=== PATIENT | female | born 1940 | race Caucasian/White ===

== ENCOUNTER 2024-06-16 11:07 | Emergency (ER) | payer MEDICARE, OTHER, SELFPAY ==
[2024-06-16] VITALS (7 sets, daily range): BP systolic 127–148; BP diastolic 65–80; PULSE 60–70; RESP 16; TEMP 37.1; O2SAT 90–98; BMI 17.2
--- NOTE | 2024-06-16 11:45 | DI.RAD.S_ITS ---
PROCEDURE: XR TIBIA FIBULA LT 2V INDICATIONS: Please evaluate for injury TECHNIQUE: 2 views of the tibia and fibula were acquired. COMPARISON: [facility], CR, XR KNEE LT 3V, 06/16/2024, 11:47. FINDINGS: Bones: There is a minimally displaced lateral tibial plateau fracture. There is intra-articular involvement. No more distal fracture is seen. Generalized degenerative changes and osteopenia can be seen. Soft tissues: No suspicious soft tissue calcifications or masses. IMPRESSION: Minimally displaced lateral tibial plateau fracture, with intra-articular involvement of the fracture line. Dictated by: Spencer Dixon M.D. on 06/16/2024 at 11:34 Approved by: Spencer Dixon M.D. on 06/16/2024 at 11:35
--- NOTE | 2024-06-16 11:45 | DI.RAD.S_ITS ---
PROCEDURE: XR KNEE LT 3V INDICATIONS: Please evaluate for injury TECHNIQUE: 3 views of the knee were acquired. COMPARISON: [facility], CR, XR TIBIA FIBULA LT 2V, 06/16/2024, 11:47. FINDINGS: Bones: There is a faintly seen, minimally displaced fracture of the lateral tibial plateau, with intra-articular involvement. Generalized degenerative changes are seen. Soft tissues: There is a moderate joint effusion, seen, with a fat fluid level. No suspicious soft tissue calcifications. Atherosclerotic calcification is noted. IMPRESSION: Minimally displaced lateral tibial plateau fracture, with intra-articular involvement. There is a moderate joint effusion, with lipohemarthrosis. Dictated by: Spencer Dixon M.D. on 06/16/2024 at 11:33 Approved by: Spencer Dixon M.D. on 06/16/2024 at 11:34
--- NOTE | 2024-06-16 12:05 | ED_ITS ---
HPI - Fall General Chief Complaint: Fall Stated Complaint: trip and fall left calf pain Time Seen by Provider: 06/16/24 11:19 Source: patient and EMS Mode of arrival: EMS History of Present Illness HPI Narrative: 84-year-old female resident of [facility] presents with left lower leg injury with a mechanical fall witnessed by staff having left knee area pain at this time but able to walk and bend her knee at all times. Other than what is stated 14 pt ROS is negative. Review of Systems Review of Systems ROS Unobtainable: All systems reviewed & are unremarkable except as noted in HPI and below Patient History Social History Smoking Status: Never smoker Smoking Status: Never smoker Exam Narrative Exam Narrative: GENERAL: [84] year old patient appears stated age. Well-developed patient, in mild distress. HEAD: Atraumatic. Normocephalic. EYES: Pupils equal round and reactive. Extraocular motions intact. No scleral icterus. No injection or drainage. ENT: Nose without bleeding, purulent drainage. Throat without erythema, tonsillar hypertrophy or exudate. Airway patent. NECK: Trachea midline. Non tender CARDIOVASCULAR: Regular rate and rhythm without murmurs, gallops, or rubs. RESPIRATORY: Clear to auscultation. Breath sounds equal bilaterally. No wheezes, rales, or rhonchi. GASTROINTESTINAL: Abdomen soft, non-tender, nondistended. EXTREMITIES: No edema. L Lateral joint line TTP on L knee but able to flex knee in flexion/extension with pain. Neg varus/valgus/adam/fabi, motor/sensory intact +2DP +2PT cap refill <2secs BACK: Nontender without deformity or crepitance. No flank tenderness. NEURO: AOx3. SKIN: No rash or erythema of visible areas Initial Vital Signs Initial Vital Signs: Vital Signs Temperature 98.7 F 06/16/24 11:36 Pulse Rate 65 06/16/24 11:36 Respiratory Rate 16 06/16/24 11:36 Blood Pressure 138/80 06/16/24 11:36 Pulse Oximetry 98 06/16/24 11:36 Oxygen Delivery Method Room Air 06/16/24 11:36 Course Orders Ordered: ED Orders 06/16/24 11:45 XR knee LT 3V Stat XR tibia fibula LT 2V Stat 06/16/24 13:29 CT LE LT wo con Stat Discontinued Medications Acetaminophen (Acetaminophen 325 Mg Tablet) 650 mg PO NOW ONE Stop: 06/16/24 12:04 Last Admin: 06/16/24 12:08 Dose: 650 mg Documented By: ZACHERY Vital Signs Vital signs: Vital Signs - 8 hr 06/16/24 11:36 Temperature 98.7 F Pulse Rate 65 Respiratory Rate 16 Blood Pressure 138/80 Pulse Oximetry 98 Oxygen Delivery Method Room Air MDM - Fall Imaging Data Extremity x-ray #1: Radiologist's Impression: PROCEDURE: XR TIBIA FIBULA LT 2V INDICATIONS: Please evaluate for injury TECHNIQUE: 2 views of the tibia and fibula were acquired. COMPARISON: [facility], , XR KNEE LT 3V, 06/16/2024, 11:47. FINDINGS: Bones: There is a minimally displaced lateral tibial plateau fracture. There is intra-articular involvement. No more distal fracture is seen. Generalized degenerative changes and osteopenia can be seen. Soft tissues: No suspicious soft tissue calcifications or masses. IMPRESSION: Minimally displaced lateral tibial plateau fracture, with intra- articular involvement of the fracture line. Dictated by: Spencer Dixon M.D. on 06/16/2024 at 11:34 Approved by: Spencer Dixon M.D. on 06/16/2024 at 11:35 [place] [address] XRay Report Signed Patient: Juana Jones MR#: [id number] : 1940 Acct:[id number] Age/Sex: 84 / F Date of Service: 06/16/24 Loc: ED Accession Number: [id number] Procedure: XR knee LT 3V Ordering Provider: Dilan Gibbs D.O. PROCEDURE: XR KNEE LT 3V INDICATIONS: Please evaluate for injury TECHNIQUE: 3 views of the knee were acquired. COMPARISON: [facility], , XR TIBIA FIBULA LT 2V, 06/16/2024, 11:47. FINDINGS: Bones: There is a faintly seen, minimally displaced fracture of the lateral tibial plateau, with intra-articular involvement. Generalized degenerative changes are seen. Soft tissues: There is a moderate joint effusion, seen, with a fat fluid level. No suspicious soft tissue calcifications. Atherosclerotic calcification is noted. IMPRESSION: Minimally displaced lateral tibial plateau fracture, with intra-articular involvement. There is a moderate joint effusion, with lipohemarthrosis. Dictated by: Spencer Dixon M.D. on 06/16/2024 at 11:33 Approved by: Spencer Dixon M.D. on 06/16/2024 at 11:[address] [address] [address] Scan Report Signed Patient: Juana Jones MR#: [id number] : 1940 Acct:[id number] Age/Sex: 84 / F Date of Service: 06/16/24 Loc: ED Accession Number: [id number] Procedure: CT LE LT wo con Ordering Provider: Dilan Gibbs D.O. PROCEDURE: CT LE LT W CON INDICATIONS: Fracture seen on plain film. Ct scan L knee per TECHNIQUE: Noncontrast 1-1.5 mm axial sections acquired from the mid-patella to the proximal tibia, with coronal and sagittal reformats. COMPARISON: [facility], CR, XR KNEE LT 3V, 06/16/2024, 11:47. [facility], CR, XR TIBIA FIBULA LT 2V, 06/16/2024, 11:47. FINDINGS: Image quality: Excellent. Bones: There is a mildly comminuted, minimally displaced fracture seen involving the lateral tibial plateau, with intra-articular involvement. Mild depression can be seen along the fracture line, which is best appreciated on sagittal images, as on series 4, image 42. The maximum step-off along the articular surface is 2 mm. Generalized degenerative changes are seen elsewhere. Soft tissues: There is associated lipohemarthrosis. Atherosclerotic calcification is noted. IMPRESSION: Comminuted fracture of the lateral tibial plateau, with associated lipohemarthrosis. Dictated by: Spencer Dixon M.D. on 06/16/2024 at 13:23 Approved by: Spencer Dixon M.D. on 06/16/2024 at 13:25 MDM Narrative Medical decision making narrative: X-ray and ct scan reviewed vital signs nurse triage note medication list previous ER visits and previous imaging modalities all reviewed. Case discussed with Dr. Echevarria orthopedics surgeon on-call to place a lower extremity CT scan order patient was also placed in a knee immobilizer and to follow up outpatient with Dr. Echevarria. Differential diagnosis includes fracture dislocation contusion sprain. Discharge Plan Departure Patient Disposition: Home Clinical Impression: Closed fracture of tibial plateau Qualifiers: Encounter type: initial encounter Laterality: left Qualified Code(s): S82.142A - Displaced bicondylar fracture of left tibia, initial encounter for closed fracture Activity Restrictions/Additional Instructions: Return with new or worsening symptoms. Follow up with Dr. Echevarria orthopedic surgeon call office for appointment. Referrals: Zenobia Echevarria MD [Physician] - 3-5 days Stand Alone Forms: Patient Portal/API/Survey
[2024-06-16] MEDS: ACETAMINOPHEN 325 MG TABLET 650 MG PO (12:08)
--- NOTE | 2024-06-16 13:29 | DI.CT.S_ITS ---
PROCEDURE: CT LE LT W CON INDICATIONS: Fracture seen on plain film. Ct scan L knee per TECHNIQUE: Noncontrast 1-1.5 mm axial sections acquired from the mid-patella to the proximal tibia, with coronal and sagittal reformats. COMPARISON: [facility], CR, XR KNEE LT 3V, 06/16/2024, 11:47. [facility], CR, XR TIBIA FIBULA LT 2V, 06/16/2024, 11:47. FINDINGS: Image quality: Excellent. Bones: There is a mildly comminuted, minimally displaced fracture seen involving the lateral tibial plateau, with intra-articular involvement. Mild depression can be seen along the fracture line, which is best appreciated on sagittal images, as on series 4, image 42. The maximum step-off along the articular surface is 2 mm. Generalized degenerative changes are seen elsewhere. Soft tissues: There is associated lipohemarthrosis. Atherosclerotic calcification is noted. IMPRESSION: Comminuted fracture of the lateral tibial plateau, with associated lipohemarthrosis. Dictated by: Spencer Dixon M.D. on 06/16/2024 at 13:23 Approved by: Spencer Dixon M.D. on 06/16/2024 at 13:25
--- NOTE | 2024-06-16 13:52 | PC.NURSE ---
Assisted pt with bedpan. Was unable to urinate.
--- NOTE | 2024-06-16 14:47 | PM.HP.1 ---
History of Present Illness History of Present Illness Date Patient Seen: 06/16/24 Time Patient Seen: 14:47 Date of Onset of Symptoms: 06/16/24 Chief complaint: trip and fall left calf pain Narrative: This is a 84-year-old who lives at [facility] who tripped and injured her left knee today. She has mild dementia. 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 She notes some mild left knee pain. She denies loss of consciousness. She was not lightheaded did not have any chest pain prior to the fall. [facility] Social History Smoking Status: Never smoker Review of Systems Review of Systems Narrative: She notes she has otherwise been reasonably well. She says she is trying to get stronger at [facility]. Exam Vital Signs (past 8 hours): - 06/16/24 11:15 06/16/24 11:15 06/16/24 11:30 Temperature Pulse Rate 66 Respiratory Rate Blood Pressure 129/77 138/80 Pulse Oximetry 90 L Oxygen Delivery Method 06/16/24 11:30 06/16/24 11:36 06/16/24 12:00 Temperature 98.7 F Pulse Rate 60 65 Respiratory Rate 16 Blood Pressure 138/80 148/80 H Pulse Oximetry 91 98 Oxygen Delivery Method Room Air 06/16/24 12:00 06/16/24 12:30 06/16/24 12:30 Temperature Pulse Rate 63 61 Respiratory Rate Blood Pressure 127/77 Pulse Oximetry 87 L 91 Oxygen Delivery Method Oxygen Delivery Method Room Air Narrative Exam Narrative: She was resting comfortably in bed HEENT is benign, lungs are clear, cor regular rate and rhythm, examination of the left lower extremity shows [id number] swelling in the left knee, focal tenderness along the lateral joint line, no gross deformity, compartments are soft, skin is intact, she is able to fire her toe flexors and extensors Objective Labs Labs: X-rays show a left lateral tibial plateau fracture, CT scan confirms essentially nondisplaced comminuted left lateral tibial plateau fracture Assessment & Plan Assessment and plan (1) Closed fracture of tibial plateau: Qualifiers: Encounter type: initial encounter Laterality: left Qualified Code(s): S82.142A - Displaced bicondylar fracture of left tibia, initial encounter for closed fracture Status: Acute Plan I have recommended conservative treatment. I have recommended a left knee immobilizer. She was in a very short left knee immobilizer I asked him to place her in a full-length knee immobilizer. I think she needs to be strict nonweightbearing on the left lower extremity. I would like her to follow up in 1 week with repeat left knee x-rays. It is okay to take the x-rays out of the brace. She needs to use her walker and/or a wheelchair to mobilize. Time-Based Coding :: [TOTAL MINUTES] spent with patient and on the chart (including review of chart, obtaining history, exam, reviewing outside data, placing orders, documenting exam and treatment plan, and counseling patient) on [DATE].
[2024-06-16] MEDS: HYDROCODONE/ACET 5/325 TABLET 1 TAB PO (15:42)
== END 2024-06-16 16:58 | disposition home or self-care (01) ==
PROVIDERS: Emergency Provider Family Medicine
DX: S82.142A Displaced bicondylar fracture of left tibia, initial encounter for closed fracture (principal); W01.0XXA Fall on same level from slipping, tripping and stumbling without subsequent striking against object, initial encounter
CPT/HCPCS: 73562; 73590; 73700; 99283; 99284

== ENCOUNTER 2024-06-29 17:56 | Inpatient (IN) | payer MEDICARE, OTHER, MEDICAID, SELFPAY ==
[2024-06-29] VITALS (14 sets, daily range): BP systolic 137–162; BP diastolic 74–96; PULSE 77–97; RESP 12–21; TEMP 36.4–36.6; O2SAT 87–99; BMI 16.0
--- NOTE | 2024-06-29 | DI.ECHO.S_ITS ---
[facility] : : [address] : : [place] : : [address] : : Phone: [phone] Echocardiogram Report + + :Name: JOSE DELEON Study Date: 06/30/2024 Height: 67 in : :[facility] ReadingLocation: Weight: 105 lb : : Gender: Female BSA: 1.5 m2 : :: 1940 Age: 84 yrs BP: 120/80 mmHg: :Reason For Study: PE : :Ordering Physician: KELLEE, : :NIGHAT DELGADO Performed By: Caio Dao : :Referring: UNSPECIFIED : + + Interpretation Summary TDS -SMALL BODY HABITUS, LARGE BREAST IMPLANTS. PT COMPLAINS OF PAIN AND COLD DURING EXAM, REFUSED SECOND HALF OF EXAM. The left ventricular cavity is small. The ejection fraction is estimated to be 65-70%. In limited views, no significant wall motion abnormalities. The right ventricle is not well visualized. The left atrium is not well visualized. From parasternal long axis view diffuse linear shadow seen in the left atrium which appears to be mirror-image of posterior wall of ascending aorta. There is moderate mitral annular calcification. Procedure: A two-dimensional transthoracic echocardiogram with color flow and Doppler was performed in limited views only. The study quality was technically difficult. The study quality was technically limited. There is no prior echocardiogram noted for this patient. Rhythm is not clear. Significant artifacts. Left Ventricle: Left ventricular wall thickness is mildly increased. The left ventricular cavity is small. The ejection fraction is estimated to be 65- 70%. In limited views, no significant wall motion abnormalities. Right Ventricle: The right ventricle is not well visualized. Atria: The left atrium is not well visualized. From parasternal long axis view diffuse linear shadow seen in the left atrium which appears to be mirror- image of posterior wall of ascending aorta. Right atrium not well visualized. The interatrial septum is not well visualized. Mitral Valve: There is moderate mitral annular calcification. In limited view, there appears to be trivial mitral regurgitation. Aortic Valve: The aortic valve is trileaflet. There is mild aortic valve sclerosis. There is no aortic valve stenosis. Tricuspid Valve: The tricuspid valve is not well visualized. Pulmonic Valve: The pulmonic valve is not well visualized. Great Vessels: The aortic root is normal size. The dimensions of the ascending aorta are normal. The pulmonary is not well visualized. The inferior vena cava was not visualized. MMode/2D Measurements & Calculations LVIDd: 3.0 cm LVOT diam: 2.1 cm LVIDs: 1.9 cm Ao root diam: 3.2 cm FS: 37.1 % asc Aorta Diam: 3.4 cm EPSS: 0.76 cm IVSd: 1.3 cm LVPWd: 1.3 cm LV mann. diameter/BSA (cm/m^2): 2.0 LV sys. diameter/BSA (cm/m^2): 1.2 Doppler Measurements & Calculations PA V2 max: 76.5 cm/sec PA V2 mean: 54.4 cm/sec PA mean P.3 mmHg PA pr(Accel): 37.9 mmHg Reading Physician:01:35 PM
--- NOTE | 2024-06-29 18:07 | DI.RAD.S_ITS ---
PROCEDURE: XR CHEST 1V INDICATIONS: chest pain TECHNIQUE: One view of the chest was acquired. COMPARISON: None. FINDINGS: Surgical changes and devices: Bilateral breast prosthesis Lungs and pleura: Hyperinflation and chronic interstitial changes Mediastinum: Mediastinal contours appear normal. Heart size is normal. Bones and chest wall: No suspicious bony lesions. Overlying soft tissues appear unremarkable. Generalized decreased osseous mineralization noted. IMPRESSION: Hyperinflation and chronic interstitial changes without pneumothorax. Osteopenia. Approved by: Louis Quispe M.D. on 06/29/2024 at 18:28
--- NOTE | 2024-06-29 18:17 | EKG_ITS ---
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
--- NOTE | 2024-06-29 18:28 | ED_ITS ---
HPI - SOB/Dyspnea General Chief Complaint: Shortness of Breath/Dyspnea Stated Complaint: low O2 Sat, no complaints Time Seen by Provider: 06/29/24 18:07 History of Present Illness HPI Narrative: 84-year-old female with history of dementia, current resident at [facility], recent left tibial plateau fracture, has recent cough and increasing shortness of breath, 88% on room air sat triage, not usually on oxygen. No other injuries known. No known fevers. Denies increased pain to her left leg, denies left or right leg swelling symptoms. Not currently on blood thinner medications. Related Data Home Medications Medication Instructions Recorded Confirmed amlodipine 5 mg tablet 5 mg PO DAILY 06/30/24 06/30/24 citalopram 10 mg tablet 10 mg PO DAILY 06/30/24 06/30/24 oxycodone 5 mg tablet 5 mg PO Q4H PRN Severe Pain (Scale 06/30/24 06/30/24 Score 7-10) Allergies Allergy/AdvReac Type Severity Reaction Status Date / Time erythromycin base Allergy Verified 06/16/24 15:37 metronidazole [From Flagyl] Allergy Verified 06/16/24 15:37 Penicillins Allergy Verified 06/16/24 15:37 simvastatin Allergy Verified 06/16/24 15:37 Patient History Social History Smoking Status: Unknown if ever smoked Exam Narrative Exam Narrative: GENERAL: Well-developed patient, in mild distress. HEAD: Atraumatic. Normocephalic. EYES: Pupils equal round and reactive. Extraocular motions intact. No scleral icterus. No injection or drainage. ENT: Nose without bleeding, purulent drainage. Throat without erythema, tonsillar hypertrophy or exudate. Airway patent. NECK: Trachea midline. Non tender CARDIOVASCULAR: Regular rate and rhythm without murmurs, gallops, or rubs. RESPIRATORY: Clear to auscultation. Breath sounds equal bilaterally. No wheezes, rales, or rhonchi. GASTROINTESTINAL: Abdomen soft, non-tender, nondistended. EXTREMITIES: Left knee brace in place, in good condition. No tenderness mid distal left tibia, or along ankle or foot. BACK: Nontender without deformity or crepitance. No flank tenderness. NEURO: AOx3. Motor functions grossly nonfocal SKIN: No rash or erythema of visible areas Initial Vital Signs Initial Vital Signs: Vital Signs Temperature 97.5 F L 06/29/24 18:00 Pulse Rate 78 06/29/24 18:00 Respiratory Rate 20 06/29/24 18:00 Blood Pressure 160/74 H 06/29/24 18:00 Pulse Oximetry 87 L 06/29/24 18:00 Oxygen Delivery Method Room Air 06/29/24 18:00 Course Orders Ordered: ED Orders 06/30/24 03:37 Basic Metabolic Panel DAILY Complete Blood Count AUTO DIFF DAILY Acetaminophen (Acetaminophen 325 Mg Tablet) 650 mg PO Q6H PRN PRN Reason: Fever/Mild Pain (1-3) Hydrocodone Bitart/Acetaminophen (Hydrocodone/Acet 5/325 Tablet) 1 tab PO Q4H PRN PRN Reason: Pain, Moderate (4-6) Amlodipine Besylate (Amlodipine 5 Mg Tablet) 5 mg PO DAILY [facility] Citalopram Hydrobromide (Citalopram 10 Mg Tablet) 10 mg PO DAILY [facility] Enoxaparin Sodium (Enoxaparin 60 Mg/0.6 Ml Syringe) 47 mg SUBCUT Q12H [facility] Last Admin: 06/30/24 00:32 Dose: Not Given Documented By: JT Sodium Chloride (Normal Saline 0.9%) 1,000 mls @ 75 mls/hr IV CONT [facility] Last Admin: 06/29/24 22:07 Dose: 75 mls/hr Documented By: RLC Naloxone HCl (Naloxone 0.4 Mg/Ml Vial) 0.2 mg IV Q2MIN PRN PRN Reason: Opiate Reversal Ondansetron HCl (Ondansetron 4 Mg/2 Ml Inj) 4 mg IV Q8HR PRN PRN Reason: Nausea And Vomiting Oxycodone HCl (Oxycodone Ir 5 Mg Tablet) 5 mg PO Q4H PRN PRN Reason: Severe Pain (Scale Score 7-10) Last Admin: 06/30/24 03:54 Dose: 5 mg Documented By: AV Discontinued Medications Albuterol (Albuterol 2.5 Mg/3 Ml Neb (Adult)) 2.5 mg INH NOW ONE Stop: 06/29/24 18:44 Last Admin: 06/29/24 19:40 Dose: 2.5 mg Documented By: SAT Enoxaparin Sodium (Enoxaparin 40 Mg/0.4 Ml Syringe) 47 mg SUBCUT Q12H [facility] Enoxaparin Sodium (Enoxaparin 40 Mg/0.4 Ml Syringe) 50 mg 1 mg/kg (50 mg) SUBCUT NOW ONE Stop: 06/29/24 21:57 Last Admin: 06/29/24 23:52 Dose: 50 mg Documented By: MARILU Enoxaparin Sodium (Enoxaparin 60 Mg/0.6 Ml Syringe) 47 mg SUBCUT NOW [facility] Stop: 06/30/24 01:00 Hydromorphone HCl (Hydromorphone 0.5 Mg Inj) 0.5 mg IV NOW ONE Stop: 06/29/24 18:37 Last Admin: 06/29/24 18:43 Dose: 0.5 mg Documented By: STU Vital Signs Vital signs: Vital Signs - 8 hr 06/29/24 18:00 06/29/24 18:19 06/29/24 18:30 Temperature 97.5 F L Pulse Rate 78 90 Respiratory Rate 20 Blood Pressure 160/74 H 162/94 H Pulse Oximetry 87 L 94 Oxygen Delivery Method Room Air Oxygen Flow Rate 06/29/24 18:30 06/29/24 18:50 06/29/24 18:54 Temperature Pulse Rate 89 Respiratory Rate 21 Blood Pressure Pulse Oximetry 92 90 L 95 Oxygen Delivery Method Nasal Cannula Nasal Cannula Oxygen Flow Rate 2 2 06/29/24 19:00 06/29/24 19:30 06/29/24 19:41 Temperature Pulse Rate 87 79 85 Respiratory Rate 20 12 18 Blood Pressure 137/89 148/92 H Pulse Oximetry 97 99 98 Oxygen Delivery Method Nasal Cannula Nasal Cannula Nasal Cannula Oxygen Flow Rate 4 2 2 06/29/24 20:00 06/29/24 20:00 06/29/24 20:30 Temperature Pulse Rate 86 Respiratory Rate 12 Blood Pressure 146/86 H 148/95 H Pulse Oximetry 92 Oxygen Delivery Method Nasal Cannula Oxygen Flow Rate 2 06/29/24 20:30 06/29/24 21:00 06/29/24 21:00 Temperature Pulse Rate 97 H 93 H Respiratory Rate 15 14 Blood Pressure 149/89 H Pulse Oximetry 98 98 Oxygen Delivery Method Nasal Cannula Nasal Cannula Oxygen Flow Rate 2 2 06/29/24 21:30 Temperature Pulse Rate 77 Respiratory Rate 13 Blood Pressure 141/91 H Pulse Oximetry 97 Oxygen Delivery Method Oxygen Flow Rate MDM - SOB/Dyspnea Lab Data Attestation: I reviewed the patient's lab results. Lab results narrative: White blood cell count 03215, hemoglobin 14.1, platelets adequate. Glucose 139. BUN 28 with creatinine 0.63 noted normal. Serum CO2 31. Potassium 4.5 normal, sodium 132 slight low, chloride 94 low. Liver functions and lipase normal. COVID flu and RSV negative. 06/30/24 03:37 06/30/24 03:37 Labs: Lab Results 06/29/24 06/29/24 Range/Units 18:05 18:10 WBC 13.8 H (4.5-11.0) X10^3/uL RBC 4.58 (4.0-5.2) X10^6/uL Hgb 14.1 (12.0-16.0) g/dL Hct 42.3 (36-46) % MCV 92.4 (80-100) fL MCH 30.9 (26-34) PG MCHC 33.4 (30-36) % RDW 13.5 (11.6-14.8) % Plt Count 261 (150-400) X10^3/uL Neut % (Auto) 84.6 H (50-75) % Lymph % (Auto) 4.3 L (25-40) % [place] % (Auto) 9.9 (3-14) % Eos % (Auto) 0.7 L (2-4) % Baso % (Auto) 0.5 (0-2) % Neut # (Auto) 21309 H (4646-1524) /uL Lymph # (Auto) 600 L (4574-1397) /uL [place] # (Auto) 1400 H (0-900) /uL Eos # (Auto) 100 (0-450) /uL Baso # (Auto) 100 (0-100) /uL PT 12.3 (9.4-12.5) SECONDS INR 1.1 (0.9-1.3) Sodium 132 L (137-145) mmol/L Potassium 4.5 (3.4-5.1) mmol/L Chloride 94 L (98-107) mmol/L Carbon Dioxide 31 (22-32) mmol/L BUN 28 H (7-17) mg/dL Creatinine 0.63 (0.52-1.04) mg/dL Estimated GFR > 60 (>60) mL/min BUN/Creatinine Ratio 44.4 H (6-22) Glucose 139 H (70-99) mg/dL Lactate 1.0 (0.7-2.1) mmol/L Calcium 9.3 (8.4-10.2) mg/dL Total Bilirubin 0.9 (0.2-1.3) mg/dL AST 35 (14-36) IU/L ALT 16 (<35) IU/L Alkaline Phosphatase 118 (38-126) U/L Total Creatine Kinase 26 L (30-135) U/L Troponin I < 0.012 (0.01-0.034) ng/mL Total Protein 7.5 (6.3-8.2) g/dL Albumin 3.9 (3.5-5.0) g/dL Globulin 3.6 (1.7-4.1) g/dL Albumin/Globulin Ratio 1.1 (1.0-2.8) Lipase 57 (23-300) U/L SARS-CoV-2 (PCR) Negative (Negative) Influenza A (RT-PCR) Flu a negative (NEGATIVE) Influenza B (RT-PCR) Flu b negative (NEGATIVE) RSV (PCR) Negative (Negative) Imaging Data Extremity x-ray #1: Radiologist's Impression: [address] [address] XRay Report Signed Patient: Juana Jones MR#: [id number] : 1940 Acct:[id number] Age/Sex: 84 / F Date of Service: 06/29/24 Loc: ED Accession Number: [id number] Procedure: XR knee LT 1to2V Ordering Provider: David Hoff MD PROCEDURE: XR KNEE LT 1TO2V INDICATIONS: recent tib-plat fx, ?new injury, dementia TECHNIQUE: 2 views of the knee were acquired. COMPARISON: [facility], CR, XR KNEE LT 3V, 06/16/2024, 11:47. [facility], CT, CT LE LT WO CON, 06/16/2024, 13:35. FINDINGS: Limited by the overlying brace. Bones: There is again seen a mildly displaced intra-articular fracture of the lateral tibial plateau. Soft tissues: No joint effusion. No suspicious soft tissue calcifications. Atherosclerotic calcification is noted. IMPRESSION: Limited study demonstrating a stable fracture of the lateral tibial plateau, with intra-articular involvement. By plain film, no new injury is seen. Dictated by: Spencer Dixon M.D. on 06/29/2024 at 19:52 Approved by: Spencer Dixon M.D. on 06/29/2024 at 19:53 Chest x-ray: Radiologist's Impression: [address] [address] XRay Report Signed Patient: Juana Jones MR#: [id number] : 1940 Acct:[id number] Age/Sex: 84 / F Date of Service: 06/29/24 Loc: ED Accession Number: [id number] Procedure: XR chest 1V Ordering Provider: David Hoff MD PROCEDURE: XR CHEST 1V INDICATIONS: chest pain TECHNIQUE: One view of the chest was acquired. COMPARISON: None. FINDINGS: Surgical changes and devices: Bilateral breast prosthesis Lungs and pleura: Hyperinflation and chronic interstitial changes Mediastinum: Mediastinal contours appear normal. Heart size is normal. Bones and chest wall: No suspicious bony lesions. Overlying soft tissues appear unremarkable. Generalized decreased osseous mineralization noted. IMPRESSION: Hyperinflation and chronic interstitial changes without pneumothorax. Osteopenia. Approved by: Louis Quispe M.D. on 06/29/2024 at 18:28 CT angiogram chest: Radiologist's Impression: [address] [address] [address] Scan Report Signed Patient: Juana Jones MR#: [id number] : 1940 Acct:[id number] Age/Sex: 84 / F Date of Service: 06/29/24 Loc: ED Accession Number: [id number] Procedure: CT angio chest PE protocol Ordering Provider: David Hoff MD PROCEDURE: CT ANGIO CHEST PE PROTOCOL INDICATIONS: dyspnea, new hypoxia, recent dx tib plateau fracture TECHNIQUE: After the administration of intravenous contrast, 2 mm thick sections acquired from the pulmonary apices to the posterior costophrenic angles. 3-dimensional maximum intensity projection (MIP) coronal and sagittal reformats were then acquired through the thorax. For radiation dose reduction, the following was used: automated exposure control, adjustment of mA and/or kV according to patient size. COMPARISON: None. FINDINGS: Image quality: Diagnostic. Pulmonary arteries: Filling defect is seen within the medial segmental branch of the left middle lobe pulmonary artery. No additional pulmonary embolus is seen. No CT signs of right heart strain. Lower Neck: No enlarged lymph nodes. Thyroid: No thyroid nodules which require sonographic follow up, per consensus guidelines. Axillae: No enlarged lymph nodes. Chest Wall: Bilateral breast implants. Bones: Mild pectus excavatum. Lungs and Pleura: Scattered tree-in-bud nodularity in the right lung is suspicious for a nonspecific infectious or inflammatory process. Findings are superimposed on areas of chronic bronchiectasis. Right greater than left a focal scarring is present. No pneumothorax or pleural effusions. No consolidation or suspicious nodules. Heart: Heart size is normal. No pericardial effusion. Thoracic Vessels: No aortic aneurysm. 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 Mediastinum and Christy: No enlarged lymph nodes. Esophagus: No wall thickening. No hiatal hernia. Upper Abdomen: Visualized upper abdomen solid organs and bowel loops appear normal. IMPRESSION: 1. Segmental filling defect in the medial right middle lobe is suspicious for pulmonary embolus. No additional pulmonary embolus is seen. No CT signs of right heart strain. 2. Right greater than left tree-in-bud nodularity in both lungs. Right greater than left bronchiectasis. Findings are suspicious for a nonspecific infectious or inflammatory process. Atypical mycobacterial infection can have a similar appearance. Approved by: Romeo Crespo M.D. on 06/29/2024 at 19:41 Findings were discussed with the referring provider, Dr. Hoff, by telephone on 06/29/2024 at 7:41 PM. ECG Data Attestation: I personally reviewed and interpreted this ECG as follows: Interpretation: Normal sinus rhythm with a rate of 89, no obvious ST segment elevation or depression changes. PVC noted. IA 162, QRS 78, QTC 450. MDM Narrative Medical decision making narrative: 84-year-old female with history of dementia, senior living resident, not usually on oxygen, recent diagnosis left tibial plateau fracture in left leg splint, noted to have shortness of breath today, 88% room air sat, placed on nasal cannula oxygen. No gross new injury to left lower extremity in splinting. No edema. Afebrile, sirs screen negative. Recent cough suspected, chest x-ray and COVID/influenza swab pending. DDx consider COPD, reactive airways, pneumonia, pulmonary embolus, fluid overload/CHF, other. Chest x-ray shows COPD like changes, no acute infiltrates, ED wet read. Await Radiology report. Trial of SVN albuterol. COVID and influenza swabs negative. Labs pending. GFR favorable, CT angiogram chest ordered. Bilateral ultrasound lower extremity venous Dopplers ordered. X-ray left knee in brace, no obvious change in tibial plateau fracture. See radiology report. CT angiogram shows right middle lobar pulmonary embolus, no RV strain. See radiology report. Venous Doppler shows left lower extremity DVT, see radiology report. Renal function adequate, we will give 1st dose subcutaneous Lovenox. Case discussed with hospitalist Dr Kearns, accepts patient for admission. Discharge Plan Departure Patient Disposition: Admitted As Inpatient Clinical Impression: Pulmonary embolism, Closed fracture of left tibial plateau, Deep vein thrombosis of left lower limb, Dyspnea, Hypoxia, History of dementia Admit Date/Time: 06/29/24 21:55 Admit Provider: Juan Kearns
[2024-06-29 18:31] LABS: Add Manual Diff / Slide Review NO; Basophils Absolute Auto 100 /uL (0-100); Basophils Percent Auto 0.5 % (0-2); Eosinophils Absolute Auto 100 /uL (0-450); Eosinophils Percent Auto 0.7 % (2-4); Hematocrit 42.3 % (36-46); Hemoglobin 14.1 g/dL (12.0-16.0); Lymphocytes Absolute Auto 600 /uL (1100-4500); Lymphocytes Percent Auto 4.3 % (25-40); Mean Corpuscular HGB Conc 33.4 % (30-36); Mean Corpuscular Hemoglobin 30.9 PG (26-34); Mean Corpuscular Volume 92.4 fL (80-100); Monocytes Absolute Auto 1400 /uL (0-900); Monocytes Percent Auto 9.9 % (3-14); Neutrophils Absolute Auto 11700 /uL (1500-7000); Neutrophils Percent Auto 84.6 % (50-75); Platelet Count 261 X10^3/uL (150-400); Red Blood Cell Count 4.58 X10^6/uL (4.0-5.2); Red Cell Distribution Width 13.5 % (11.6-14.8); White Blood Cell Count 13.8 X10^3/uL (4.5-11.0)
[2024-06-29 18:32] LABS: INR 1.1 (0.9-1.3); Prothrombin Time 12.3 SECONDS (9.4-12.5)
[2024-06-29 18:36] LABS: Alanine Aminotransferase 16 IU/L (<35); Albumin 3.9 g/dL (3.5-5.0); Albumin Globulin Ratio 1.1 (1.0-2.8); Alkaline Phosphatase 118 U/L (38-126); Aspartate Aminotransferase 35 IU/L (14-36); BUN Creatinine Ratio 44.4 (6-22); Bilirubin Total 0.9 mg/dL (0.2-1.3); Blood Urea Nitrogen 28 mg/dL (7-17); Calcium 9.3 mg/dL (8.4-10.2); Carbon Dioxide 31 mmol/L (22-32); Chloride 94 mmol/L (98-107); Creatine Kinase 26 U/L (30-135); Estimated Glomerular Filt Rate > 60 mL/min (>60); Globulin 3.6 g/dL (1.7-4.1); Glucose 139 mg/dL (70-99); HEMOLYSIS 47 (0-50); Lipase 57 U/L (23-300); Potassium 4.5 mmol/L (3.4-5.1); Sodium 132 mmol/L (137-145); Total Protein 7.5 g/dL (6.3-8.2)
[2024-06-29] MEDS: HYDROMORPHONE 0.5 MG INJ IV (18:43)
[2024-06-29 18:47] LABS: Influenza A - CEPHEID Flu A NEGATIVE (NEGATIVE); Influenza B - CEPHEID Flu B NEGATIVE (NEGATIVE); Respiratory Syncytial Virus Negative (Negative)
[2024-06-29 18:48] LABS: Troponin I < 0.012 ng/mL (0.01-0.034)
[2024-06-29 18:49] LABS: COVID-19 CEPHEID 4-PLEX PCR Negative (Negative)
--- NOTE | 2024-06-29 18:49 | DI.CT.S_ITS ---
PROCEDURE: CT ANGIO CHEST PE PROTOCOL INDICATIONS: dyspnea, new hypoxia, recent dx tib plateau fracture TECHNIQUE: After the administration of intravenous contrast, 2 mm thick sections acquired from the pulmonary apices to the posterior costophrenic angles. 3-dimensional maximum intensity projection (MIP) coronal and sagittal reformats were then acquired through the thorax. For radiation dose reduction, the following was used: automated exposure control, adjustment of mA and/or kV according to patient size. COMPARISON: None. FINDINGS: Image quality: Diagnostic. Pulmonary arteries: Filling defect is seen within the medial segmental branch of the left middle lobe pulmonary artery. No additional pulmonary embolus is seen. No CT signs of right heart strain. Lower Neck: No enlarged lymph nodes. Thyroid: No thyroid nodules which require sonographic follow up, per consensus guidelines. Axillae: No enlarged lymph nodes. Chest Wall: Bilateral breast implants. Bones: Mild pectus excavatum. Lungs and Pleura: Scattered tree-in-bud nodularity in the right lung is suspicious for a nonspecific infectious or inflammatory process. Findings are superimposed on areas of chronic bronchiectasis. Right greater than left a focal scarring is present. No pneumothorax or pleural effusions. No consolidation or suspicious nodules. Heart: Heart size is normal. No pericardial effusion. Thoracic Vessels: No aortic aneurysm. 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 Mediastinum and Christy: No enlarged lymph nodes. Esophagus: No wall thickening. No hiatal hernia. Upper Abdomen: Visualized upper abdomen solid organs and bowel loops appear normal. IMPRESSION: 1. Segmental filling defect in the medial right middle lobe is suspicious for pulmonary embolus. No additional pulmonary embolus is seen. No CT signs of right heart strain. 2. Right greater than left tree-in-bud nodularity in both lungs. Right greater than left bronchiectasis. Findings are suspicious for a nonspecific infectious or inflammatory process. Atypical mycobacterial infection can have a similar appearance. Approved by: Romeo Crespo M.D. on 06/29/2024 at 19:41 Findings were discussed with the referring provider, Dr. Hoff, by telephone on 06/29/2024 at 7:41 PM.
--- NOTE | 2024-06-29 18:50 | DI.US.S_ITS ---
PROCEDURE: US PERIPH VENOUS LOW EXTREM BI INDICATIONS: new hypoxia, recent L tib plateau fx TECHNIQUE: Real-time imaging, as well as color and pulse Doppler interrogation, were performed of the deep veins of both legs from the inguinal ligament to the popliteal fossa, with documentation of the visualized calf veins. COMPARISON: [facility], CR, XR KNEE LT 1TO2V, 06/29/2024, 20:12. [facility], CT, CT ANGIO CHEST PE PROTOCOL, 06/29/2024, 18:57. FINDINGS: Right: The common femoral, femoral, popliteal, and the visualized calf veins are normally compressible, and free of intraluminal thrombus. Color and pulse Doppler demonstrate normal phasic intravascular flow. There is normal augmentation response to distal compression maneuver. Left: Within at least 1 of the posterior tibial veins, occlusive deep venous thrombosis can be seen. Evaluation of the left leg is highly limited by overlying bracing material. IMPRESSION: Deep venous thrombosis can be seen within at least 1 of the left posterior tibial veins. Evaluation of the more proximal left lower extremity is limited by overlying bracing material. Note: Concordant preliminary findings given by the monument letterer upon the completion of the examination to Dr. Hoff at 9:12 p.m. on June 29, 2024. Dictated by: Spencer Dixon M.D. on 06/29/2024 at 20:28 Approved by: Spencer Dixon M.D. on 06/29/2024 at 20:30
[2024-06-29] MEDS: ALBUTEROL 2.5 MG/3 ML NEB (ADULT) INH (19:40)
--- NOTE | 2024-06-29 19:54 | DI.RAD.S_ITS ---
PROCEDURE: XR KNEE LT 1TO2V INDICATIONS: recent tib-plat fx, ?new injury, dementia TECHNIQUE: 2 views of the knee were acquired. COMPARISON: [facility], CR, XR KNEE LT 3V, 06/16/2024, 11:47. [facility], CT, CT LE LT WO CON, 06/16/2024, 13:35. FINDINGS: Limited by the overlying brace. Bones: There is again seen a mildly displaced intra-articular fracture of the lateral tibial plateau. Soft tissues: No joint effusion. No suspicious soft tissue calcifications. Atherosclerotic calcification is noted. IMPRESSION: Limited study demonstrating a stable fracture of the lateral tibial plateau, with intra-articular involvement. By plain film, no new injury is seen. Dictated by: Spencer Dixon M.D. on 06/29/2024 at 19:52 Approved by: Spencer Dixon M.D. on 06/29/2024 at 19:53
[2024-06-29] MEDS: SODIUM CHLORIDE 0.9% 1,000 ML 75 ML IV (22:07)
[2024-06-29] MEDS: ENOXAPARIN 40 MG/0.4 ML SYRINGE 50 MG SUBCUT (23:52)
--- NOTE | 2024-06-30 02:11 | P.HP_ITS ---
History of Present Illness History of Present Illness Chief complaint: low O2 Sat, no complaints Narrative: 84-year-old female with past medical history of dementia, recent left tibial plateau fracture presents with shortness of breath and low oxygen. Of note the patient was sent here due to low saturation oxygen on room air. It was found that the patient was around 88%. There was no report of any fever, chills, nausea, vomiting, diarrhea or chest pain. Due to patient's dementia no direct history can be obtained. In the ER the patient was requiring 2 L of oxygen per nasal cannula. CT scanning of the chest with contrast shows segmental filling defect in the medial right middle lobe suspicious for PE. Labs were relatively benign except for WBC of 13 sodium 132 and glucose of 139. The patient received therapeutic Lovenox and request for admission. FORMERLY [facility], [facility] Social History Smoking Status: Unknown if ever smoked Meds Home Medications and Allergies Home Medications Medication Instructions Recorded Confirmed Type amlodipine 5 mg tablet 5 mg PO DAILY 06/30/24 06/30/24 History citalopram 10 mg tablet 10 mg PO DAILY 06/30/24 06/30/24 History oxycodone 5 mg tablet 5 mg PO Q4H PRN Severe Pain (Scale 06/30/24 06/30/24 History Score 7-10) Allergies Allergy/AdvReac Type Severity Reaction Status Date / Time erythromycin base Allergy Verified 06/16/24 15:37 metronidazole [From Flagyl] Allergy Verified 06/16/24 15:37 Penicillins Allergy Verified 06/16/24 15:37 simvastatin Allergy Verified 06/16/24 15:37 Review of Systems Review of Systems ROS: Yes All systems reviewed with the patient and are negative except as otherwise documented Exam Vital Signs (past 8 hours): - 06/29/24 18:19 06/29/24 18:30 06/29/24 18:30 Temperature Pulse Rate 90 89 Respiratory Rate 21 Blood Pressure 162/94 H Pulse Oximetry 94 92 Oxygen Delivery Method Oxygen Flow Rate 06/29/24 18:50 06/29/24 18:54 06/29/24 19:00 Temperature Pulse Rate 87 Respiratory Rate 20 Blood Pressure 137/89 Pulse Oximetry 90 L 95 97 Oxygen Delivery Method Nasal Cannula Nasal Cannula Nasal Cannula Oxygen Flow Rate 2 2 4 06/29/24 19:30 06/29/24 19:41 06/29/24 20:00 Temperature Pulse Rate 79 85 Respiratory Rate 12 18 Blood Pressure 148/92 H 146/86 H Pulse Oximetry 99 98 Oxygen Delivery Method Nasal Cannula Nasal Cannula Oxygen Flow Rate 2 2 06/29/24 20:00 06/29/24 20:30 06/29/24 20:30 Temperature Pulse Rate 86 97 H Respiratory Rate 12 15 Blood Pressure 148/95 H Pulse Oximetry 92 98 Oxygen Delivery Method Nasal Cannula Nasal Cannula Oxygen Flow Rate 2 2 06/29/24 21:00 06/29/24 21:00 06/29/24 21:30 Temperature Pulse Rate 93 H 77 Respiratory Rate 14 13 Blood Pressure 149/89 H 141/91 H Pulse Oximetry 98 97 Oxygen Delivery Method Nasal Cannula Oxygen Flow Rate 2 06/29/24 22:00 06/29/24 22:00 06/29/24 22:56 Temperature Pulse Rate 78 Respiratory Rate 19 Blood Pressure 146/87 H Pulse Oximetry 97 Oxygen Delivery Method Nasal Cannula Oxygen Flow Rate 2 06/29/24 22:56 06/29/24 23:25 Temperature 98 F Pulse Rate 87 Respiratory Rate 18 Blood Pressure 145/96 H Pulse Oximetry 95 Oxygen Delivery Method Nasal Cannula Oxygen Flow Rate 2 Oxygen Delivery Method Nasal Cannula Oxygen Flow Rate 2 Narrative Exam Narrative: Physical Exam: GENERAL: The patient is not in any acute distressed. Awake and alert. HEENT: Nonicteric sclerae, PERRLA, EOMI. Oropharynx clear. Moist mucous membranes. Conjunctivae appear well perfused. HEART: Regular rate and rhythm without murmurs. No lower extremities edema. LUNGS: Clear to auscultation bilaterally. No wheezing, crackles or rhonchi ABDOMEN: Soft, positive bowel sounds, nontender. SKIN: No rash, no excessive bruising, petechiae, or purpura. NEUROLOGIC: AxO x 3. Cranial nerves II-XII intact without motor/sensory deficit. Objective Labs 06/29/24 18:10 06/29/24 18:10 Labs: Laboratory Results - last 24 hr 06/29/24 06/29/24 18:05 18:10 WBC 13.8 H RBC 4.58 Hgb 14.1 Hct 42.3 MCV 92.4 MCH 30.9 MCHC 33.4 RDW 13.5 Plt Count 261 Neut % (Auto) 84.6 H Lymph % (Auto) 4.3 L [place] % (Auto) 9.9 Eos % (Auto) 0.7 L Baso % (Auto) 0.5 Neut # (Auto) 01618 H Lymph # (Auto) 600 L [place] # (Auto) 1400 H Eos # (Auto) 100 Baso # (Auto) 100 PT 12.3 INR 1.1 Sodium 132 L Potassium 4.5 Chloride 94 L Carbon Dioxide 31 BUN 28 H Creatinine 0.63 Estimated GFR > 60 BUN/Creatinine Ratio 44.4 H Glucose 139 H Lactate 1.0 Calcium 9.3 Total Bilirubin 0.9 AST 35 ALT 16 Alkaline Phosphatase 118 Total Creatine Kinase 26 L Troponin I < 0.012 Total Protein 7.5 Albumin 3.9 Globulin 3.6 Albumin/Globulin Ratio 1.1 Lipase 57 SARS-CoV-2 (PCR) Negative Influenza A (RT-PCR) Flu a negative Influenza B (RT-PCR) Flu b negative RSV (PCR) Negative Assessment & Plan Assessment & Plan narrative: Right sided PE. Admit the patient to medical telemetry as inpatient. Continue therapeutic Lovenox. Of note patient likely developed PE due to immobility since the patient recently had fracture of the left tibial plateau. Will also obtain echocardiogram in the morning to assess for any right-sided heart failure. Left tibial plateau fracture. Pain control with PT OT. Dementia will likely be discharged back to care facility. DVT prophylaxis Lovenox. CODE STATUS full code will need to determine CODE STATUS from care facility in the morning. Disposition likely back to care facility in 2 days. - As the provider of this telehealth evaluation, requested by the patient's evaluating physician, I attest that I introduced myself to the patient, provided my credentials and determined that telemedicine via a real-time, 2 way interactive audio and video platform is an appropriate and effective means of providing this service. - I reviewed the patient's chart and had a discussion with the member of the patient's treatment team. - The patient and I mutually agreed with continuation of this evaluation via telemedicine. The patient consented for the telemedicine evaluation. - This virtual encounter was taken place from [place]. The encounter was approximately 35 minutes. The nurse was present during the entire time of the encounter and was able to move the stethoscope in appropriate directions. The patient was evaluated at [facility]. Time-Based Coding :: [TOTAL MINUTES] spent with patient and on the chart (including review of chart, obtaining history, exam, reviewing outside data, placing orders, documenting exam and treatment plan, and counseling patient) on [DATE]. Quality VTE Deep Vein Thrombosis/Pulmonary Embolism Present on Admission: Yes
[2024-06-30] MEDS: OXYCODONE IR 5 MG TABLET PO ×4 (03:54→23:47)
[2024-06-30 04:02] LABS: Add Manual Diff / Slide Review NO; Basophils Absolute Auto 100 /uL (0-100); Basophils Percent Auto 0.5 % (0-2); Eosinophils Absolute Auto 100 /uL (0-450); Hematocrit 39.8 % (36-46); Hemoglobin 13.4 g/dL (12.0-16.0); Lymphocytes Absolute Auto 500 /uL (1100-4500); Lymphocytes Percent Auto 4.3 % (25-40); Mean Corpuscular HGB Conc 33.8 % (30-36); Mean Corpuscular Hemoglobin 31.2 PG (26-34); Mean Corpuscular Volume 92.5 fL (80-100); Monocytes Absolute Auto 1100 /uL (0-900); Monocytes Percent Auto 10.3 % (3-14); Neutrophils Absolute Auto 9200 /uL (1500-7000); Neutrophils Percent Auto 83.9 % (50-75); Platelet Count 223 X10^3/uL (150-400); Red Cell Distribution Width 13.1 % (11.6-14.8)
[2024-06-30 04:03] LABS: Blood Urea Nitrogen 25 mg/dL (7-17); Carbon Dioxide 33 mmol/L (22-32); Chloride 96 mmol/L (98-107); Estimated Glomerular Filt Rate > 60 mL/min (>60); Glucose 102 mg/dL (70-99); HEMOLYSIS 21 (0-50); Sodium 132 mmol/L (137-145)
[2024-06-30 08:00] VITALS: BP 120/80; PULSE 84; RESP 15; TEMP 36.4; O2SAT 98
[2024-06-30] MEDS: CITALOPRAM 10 MG TABLET PO (10:29)
[2024-06-30] MEDS: AMLODIPINE 5 MG TABLET PO (10:29)
[2024-06-30] MEDS: SODIUM CHLORIDE 0.9% FLUSH 10 ML IV ×2 (10:29→20:48)
[2024-06-30 11:34] VITALS: O2SAT 92
[2024-06-30] MEDS: SODIUM CHLORIDE 0.9% 1,000 ML 75 ML IV ×2 (11:37→23:50)
[2024-06-30] MEDS: ENOXAPARIN 60 MG/0.6 ML SYRINGE 47 MG SUBCUT (11:52)
--- NOTE | 2024-06-30 15:52 | CM.DANOTE ---
Initial DCP Assessment Note Pt is a 84 yo female, resident of [facility] in [place], presents with shortness of breath and low oxygen. Right sided PE. PCP: facility provider Payer: [employer]/mikayla Reviewed chart, pt discussed in multidisciplinary rounds this morning. Return to [facility] is expected in 24-48 hrs. Reviewed chart including past ER visit for [facility] contact. Placed call to [facility] clinical administrator Eliud P [phone] who referred to Insurance Sales Professional Carol P [phone]. Had to LM for Carol and did not hear back this day 06/30. Patient appears to be at physical and cognitive baseline. Very [place], dementia. Plan: Discharge back to [facility] is anticipated when patient is medically stable. [facility] information would be helpful- update the chart when known. CM team will plan to follow clinical course closely for coordination efforts. BETHANY Madden Discharge Planning/Care Management CM Discharge Assessment Start: 06/30/24 15:47 Freq: Status: Active Protocol: Document 06/30/24 15:47 AMALIA (Rec: 06/30/24 15:52 AMALIA Desktop) Discharge Planning Assessment Assigned Finishing Range Feeder BETHANY Noel DPOA/Assigned Designee Name None one listed Advance Directives? No History Provided By Medical Record Prior Living Arrangements Assisted Living Type of transporation used prior to Relies on Others admit Facility Name Admitted From: [facility] Living Willing to Return to Facility? Yes Independent with ADL's No Is patient alert and oriented? No Needs Assistance With Bathing,Grooming,Meal Prep, Toileting,Managing Medications ,Home Chores / Shopping Caregiver for Another No Barriers to Discharge No Discharge Plan Assisted Living Facility Transportation Arrangement Facility van Referrals Initiated None needed Additional Comment Follow for needs
--- NOTE | 2024-06-30 18:31 | PM.PN.1 ---
Subjective Subjective Interval history: 84-year-old female with dementia, recent left tibial plateau fracture, hypertension who was admitted last evening with left posterior DVT and right middle lobe PE without evidence of heart strain on CT scan. Patient was in bed wrapped up in blankets in complaining of feeling cold on my arrival. She denied any shortness of breath or chest pain. She did have supplemental oxygen on at 2 liters/minute. She denied any complaints of knee pain. She sustained a fall with a left tibial plateau fracture on June 16, 2024. [facility] resides at [facility]. Exam Vital Signs (past 8 hours): - 06/30/24 10:54 06/30/24 11:34 06/30/24 11:34 Pulse Oximetry 92 92 Oxygen Delivery Method Nasal Cannula Nasal Cannula Oxygen Flow Rate 3 3 Oxygen Delivery Method Nasal Cannula Oxygen Flow Rate 3 Narrative Exam Narrative: GEN: Alert and oriented x 1, NAD HEENT:NC, Face symmetric CHEST: Respiratory excursions symmetric, CTAB CV: RRR, no M/R/G ABD: Soft, NT/ND, BT present in all 4 quadrants, no organomegaly or masses EXTR: warm, well perfused, no C/C/E, left lower extremity is in a knee immobilizer SKIN: warm and dry, no rash NEURO: Alert and oriented x 1, nonfocal Objective Labs 06/30/24 03:37 06/30/24 03:37 Labs: Laboratory Results - last 24 hr 06/29/24 06/29/24 06/30/24 18:05 18:10 03:37 WBC 13.8 H 11.0 RBC 4.58 4.30 Hgb 14.1 13.4 Hct 42.3 39.8 MCV 92.4 92.5 MCH 30.9 31.2 MCHC 33.4 33.8 RDW 13.5 13.1 Plt Count 261 223 Neut % (Auto) 84.6 H 83.9 H Lymph % (Auto) 4.3 L 4.3 L [place] % (Auto) 9.9 10.3 Eos % (Auto) 0.7 L 1.0 L Baso % (Auto) 0.5 0.5 Neut # (Auto) 20510 H 9200 H Lymph # (Auto) 600 L 500 L [place] # (Auto) 1400 H 1100 H Eos # (Auto) 100 100 Baso # (Auto) 100 100 PT 12.3 INR 1.1 Sodium 132 L 132 L Potassium 4.5 4.0 Chloride 94 L 96 L Carbon Dioxide 31 33 H BUN 28 H 25 H Creatinine 0.63 0.50 L Estimated GFR > 60 > 60 BUN/Creatinine Ratio 44.4 H 50.0 H Glucose 139 H 102 H Lactate 1.0 Calcium 9.3 9.0 Total Bilirubin 0.9 AST 35 ALT 16 Alkaline Phosphatase 118 Total Creatine Kinase 26 L Troponin I < 0.012 Total Protein 7.5 Albumin 3.9 Globulin 3.6 Albumin/Globulin Ratio 1.1 Lipase 57 SARS-CoV-2 (PCR) Negative Influenza A (RT-PCR) Flu a negative Influenza B (RT-PCR) Flu b negative RSV (PCR) Negative PFSH Social History Smoking Status: Unknown if ever smoked Assessment & Plan Assessment & Plan narrative: 1. Right middle lobe pulmonary embolus/left lower extremity DVT Patient was admitted and placed on Lovenox. Will transition to oral Eliquis 10 mg p.o. b.i.d. for 7 days, followed by 5 mg b.i.d.. This was a provoked PE due to the fact that she had a recent tibial plateau fracture. Currently she denies any chest pain, pleuritic pain or shortness a breath. 2. Acute hypoxic respiratory failure Patient's O2 sats were down to 87% last evening. She is requiring 2 L of oxygen to maintain saturations 3. Hypertension Continue amlodipine 4. Depression Continue Celexa 5. Dementia Unknown what her baseline status is. She is presently cooperative Code status DNR per her POLST. Prophylaxis Eliquis Disposition Likely back to [facility] tomorrow Time-Based Coding :: [TOTAL MINUTES] spent with patient and on the chart (including review of chart, obtaining history, exam, reviewing outside data, placing orders, documenting exam and treatment plan, and counseling patient) on [DATE]. Quality VTE Deep Vein Thrombosis/Pulmonary Embolism Present on Admission: Yes
[2024-06-30 19:00] VITALS: BP 134/81; PULSE 65; RESP 15; TEMP 36.5; O2SAT 94
[2024-06-30] MEDS: APIXABAN 5 MG TABLET 10 MG PO (20:41)
[2024-06-30] MEDS: ACETAMINOPHEN 325 MG TABLET 650 MG PO (20:41)
[2024-06-30 22:05] VITALS: O2SAT 94
[2024-06-30 23:00] VITALS: BP 120/77; PULSE 70; RESP 16; TEMP 36.3; O2SAT 97
[2024-07-01 06:26] VITALS: BP 139/89; PULSE 65; RESP 15; TEMP 36.2; O2SAT 98
[2024-07-01] MEDS: OXYCODONE IR 5 MG TABLET PO ×2 (06:29→14:15)
[2024-07-01 08:00] VITALS: BP 129/83; PULSE 76; RESP 17; TEMP 35.9; O2SAT 96
[2024-07-01] MEDS: APIXABAN 5 MG TABLET 10 MG PO (08:35)
[2024-07-01] MEDS: AMLODIPINE 5 MG TABLET PO (08:37)
[2024-07-01] MEDS: CITALOPRAM 10 MG TABLET PO (08:37)
--- NOTE | 2024-07-01 11:21 | P.DS_ITS ---
History of Present Illness History of Present Illness Date Patient Seen: 07/01/24 Time Patient Seen: 09:30 Chief complaint: low O2 Sat, no complaints Narrative: 84-year-old female with past medical history of dementia, recent left tibial plateau fracture presents with shortness of breath and low oxygen. Of note the patient was sent here due to low saturation oxygen on room air. It was found that the patient was around 88%. There was no report of any fever, chills, nausea, vomiting, diarrhea or chest pain. Due to patient's dementia no direct history can be obtained. In the ER the patient was requiring 2 L of oxygen per nasal cannula. CT scanning of the chest with contrast shows segmental filling defect in the medial right middle lobe suspicious for PE. Labs were relatively benign except for WBC of 13 sodium 132 and glucose of 139. The patient received therapeutic Lovenox and request for admission. Discharge Providers Provider Date of admission: 06/29/24 21:55 Discharge Date: 07/01/24 Discharge provider: Gerardo Javier DO Summary Hospital Course Discharge Diagnosis: 1. Right middle lobe pulmonary embolus/left lower extremity DVT 2. Acute hypoxic respiratory failure 3. Hypertension 4. Depression 5. Dementia Hospital Course: This is a 84-year-old female with a past medical history of hypertension, depression, and dementia with recent tibial plateau fracture who was admitted with shortness of breath and acute hypoxic respiratory failure secondary to found pulmonary embolism. She was initiated on anticoagulation with improvement in her subjective symptoms. Echocardiogram was performed which showed no significant signs of right heart strain. She was transitioned to apixaban without significant change. She did continue to require small amount of supplemental oxygen, currently at 1 liter/minute. This will likely improve over time, and patient is stable to return to her assisted living facility. Recommend continuing to try to weaned down off of supplemental oxygen, with a goal of O2 saturations between 90 and 96% while on therapy. Apixaban will be lowered from 10 mg twice a day to 5 mg twice a day after 1 week of therapy, and she should continue on anticoagulation for 3-6 months in the setting of a provoked venous thromboembolism. Recommend follow-up with primary care physician for further discussion on timing of discontinuation. Time Spent with Patient Time spent: Greater than 30 minutes Exam Vital Signs (past 8 hours): - 07/01/24 06:26 07/01/24 08:00 Temperature 97.1 F L 96.6 F L Pulse Rate 65 76 Respiratory Rate 15 17 Blood Pressure 139/89 129/83 Pulse Oximetry 98 96 Oxygen Flow Rate 1 Fraction of Inspired Oxygen 32 SaO2/FiO2 Ratio 293 Oxygen Delivery Method Nasal Cannula Oxygen Flow Rate 1 Narrative Exam Narrative: GEN: Alert and oriented x 1, NAD HEENT:NC, Face symmetric CHEST: Respiratory excursions symmetric, CTAB CV: RRR, no M/R/G ABD: Soft, NT/ND, BT present in all 4 quadrants, no organomegaly or masses EXTR: warm, well perfused, no C/C/E, left lower extremity is in a knee immobilizer SKIN: warm and dry, no rash NEURO: Alert and oriented x 1, nonfocal Objective Labs 06/30/24 03:37 06/30/24 03:37 PFSH Social History Smoking Status: Unknown if ever smoked Discharge Plan Discharge Plan Patient Disposition: Assisted Living Transfer to: [facility] Living Provider Discharge Comment: 84 F admitted with hypoxia due to newly diagnosed PE. Continue on apixaban 10 mg BID for 1 week, followed by 5 mg BID after for 3- 6 months in setting of provoked VTE. Requiring small amount of O2 at time of discharge currently 1L. Continue to wean down if possible, goal O2 is 90-96% while on supplemental therapy. If O2 >90% on room air no need for oxygen at that time. Discharge orders & Medications Discharge Orders: Discharge (Order); Ordered 07/01/24 Ordered By: Gerardo Javier Prescriptions: New Eliquis 5 mg Tablet 10 mg PO BID 7 Days Qty: 14 0RF Continued amlodipine 5 mg tablet 5 mg PO DAILY citalopram 10 mg Tablet 10 mg PO DAILY oxycodone 5 mg tablet 5 mg PO Q4H PRN (Reason: Severe Pain (Scale Score 7-10)) Qty: 20 0RF Discharge Health Status Multidrug resistant organism: No MDRO Precautions: [place] Diet/Activity/Treatments Diet: Diet as Tolerated and Regular Liquid consistency: Normal/Thin Food texture: Regular Activity: As tolerated, no restrictions Oxygen: 1L O2 currently. If spO2 >96% okay to trial off. If drops to <90%,resume 1L Visit Report/Discharge Packet Stand Alone Forms: Patient Portal/API, Stroke Signs & Symptoms Quality VTE Deep Vein Thrombosis/Pulmonary Embolism Present on Admission: Yes
--- NOTE | 2024-07-01 12:12 | CM.DPNOTE ---
DCP note PRODUCT DEVELOPMENT SPECIALIST reviewed EMR per provider in morning rounds, cleared for dc today back to [facility]. new home O2 eval placed. per RT, pt qualifies for home O2. RT working on setting it up. PRODUCT DEVELOPMENT SPECIALIST faxed clinicals to [facility]. (f [phone]) (FS, H&P, PN, vitals, dc sum draft). PRODUCT DEVELOPMENT SPECIALIST spoke with AVIS Maia Smith (p [phone]). reviewed DCP. in agreement for pt to return to [facility] today. report pt uses [facility] at baseline, [facility] assist with transfers/ADLs. PRODUCT DEVELOPMENT SPECIALIST spoke with Carol at [facility] ([phone]). Carol in agreement to take pt back. denies need for RN report. facility can transport at 1430. need strict oxygen orders in dc summary. PRODUCT DEVELOPMENT SPECIALIST updated provider/RN/BURR BENCH HAND/RT. PRODUCT DEVELOPMENT SPECIALIST placed scripts/meds in pt's red folder. PRODUCT DEVELOPMENT SPECIALIST met with pt in room. introduced self and role. pt tearful, wants to go home. confused, wants to go to her parents house. reported being in pain, PRODUCT DEVELOPMENT SPECIALIST got pt warm blanket and updated RN about pain, RN to check in with pt at bedside. P: return to [facility] today with new home O2. facility transport. CM team will continue to follow as needed. BETHANY Cohn
--- NOTE | 2024-07-01 12:13 | PC.NURSE ---
Patient is going back to [facility], she is on 1L and sats are above 90. She has dementia and is crying, she was also doing this yesterday. She forgets that she does not live in her family home anymore and she still thinks her parents are alive. Per patient she her but they are still good friends and he does visit her. She has been living at [facility]. Patient has her immobilizer on to left leg, as she fell and fx/broke her left tibia. Her lung sounds were clear, slightly diminished and left leg is slightly swollen with a 1+ edema. Will medicate patient prior to discharge back to [facility] at 1430 and will call report.
== END 2024-07-01 14:30 | DRG 175 ==
LOC: ED 21:46 → AC 21:56
PROVIDERS: Admitting Provider Internal Medicine; Emergency Provider Emergency Medicine; Referring Provider Emergency Medicine; Visit Provider Internal Medicine
DX: I26.99 Other pulmonary embolism without acute cor pulmonale (principal); J96.01 Acute respiratory failure with hypoxia; I82.402 Acute embolism and thrombosis of unspecified deep veins of left lower extremity; Z66 Do not resuscitate; S82.142D Displaced bicondylar fracture of left tibia, subsequent encounter for closed fracture with routine healing; I10 Essential (primary) hypertension; F32.A Depression, unspecified; F03.90 Unspecified dementia, unspecified severity, without behavioral disturbance, psychotic disturbance, mood disturbance, and anxiety; Z88.1 Allergy status to other antibiotic agents; Z88.0 Allergy status to penicillin; Z88.8 Allergy status to other drugs, medicaments and biological substances; X58.XXXD Exposure to other specified factors, subsequent encounter
CPT/HCPCS: 0241U; 36415; 71045; 71275; 73560; 80048; 80053; 82550; 83605; 83690; 84484; 85025; 85610; 93005; 93010; 93306; 93970; 94618; 94640; 94762; 96374; 99285; J1171; J1650; J7613; Q9967

== ENCOUNTER → 2024-07-03 06:32 | Outpatient (ROUT) | payer MEDICARE, OTHER, MEDICAID, SELFPAY ==
[2024-06-29 23:25] VITALS: BMI 16.0
[2024-07-03 08:22] LABS: Hematocrit 41.1 % (36-46); Hemoglobin 13.8 g/dL (12.0-16.0); Mean Corpuscular HGB Conc 33.6 % (30-36); Mean Corpuscular Hemoglobin 30.8 PG (26-34); Mean Corpuscular Volume 91.7 fL (80-100); Platelet Count 247 X10^3/uL (150-400); Red Blood Cell Count 4.48 X10^6/uL (4.0-5.2); Red Cell Distribution Width 13.2 % (11.6-14.8); White Blood Cell Count 11.9 X10^3/uL (4.5-11.0)
[2024-07-03 08:33] LABS: Blood Urea Nitrogen 17 mg/dL (7-17); Calcium 9.1 mg/dL (8.4-10.2); Carbon Dioxide 32 mmol/L (22-32); Chloride 92 mmol/L (98-107); Estimated Glomerular Filt Rate > 60 mL/min (>60); Glucose 120 mg/dL (70-99); HEMOLYSIS < 15 (0-50); Potassium 3.9 mmol/L (3.4-5.1); Sodium 132 mmol/L (137-145)
== END ==
PROVIDERS: Visit Provider Registered Nurse
DX: I82.402 Acute embolism and thrombosis of unspecified deep veins of left lower extremity; I26.99 Other pulmonary embolism without acute cor pulmonale
CPT/HCPCS: 36415; 80048; 85027